=== PATIENT | male | born 1965 ===

== ENCOUNTER 2017-11-10 04:57 | Emergency (ER) | payer MEDICAID ==
--- NOTE | 2017-11-10 07:11 | Emergency Department Report ---
ED Fall HPI - General Chief Complaint: Fall Stated Complaint: FALL/SUICIDAL Time Seen by Provider: 11/10/17 06:51 Source: patient Mode of arrival: Ambulatory Limitations: Altered Mental Status - History of Present Illness Initial Comments: Patient fell out of his wheelchair this morning after drinking alcohol. Patient is unable to give history because he is drunk. Complaint: fall -: Sudden Fall From: wheelchair When Fall Occurred: just prior to arrival Fall Witnessed: no Loss of Consciousness: unsure Prolonged Down Time?: no Symptoms Prior to Fall: none Location: head Severity: mild Severity scale (0 -10): 0 Context: alcohol use Associated Symptoms: denies - Related Data Allergies Allergy/AdvReac Type Severity Reaction Status Date / Time No Known Allergies Allergy Unverified 11/10/17 06:43 ED Review of Systems ROS: Stated complaint: FALL/SUICIDAL Other details as noted in HPI Comment: All other systems reviewed and negative Constitutional: denies: chills, fever Eyes: denies: eye pain ENT: denies: ear pain Respiratory: denies: cough, shortness of breath Cardiovascular: denies: chest pain, palpitations Endocrine: no symptoms reported Gastrointestinal: denies: abdominal pain, nausea, vomiting, diarrhea Genitourinary: denies: urgency, dysuria Musculoskeletal: denies: back pain, joint swelling Skin: denies: rash, lesions, change in color Neurological: denies: headache, weakness, numbness Psychiatric: denies: anxiety, depression Hematological/Lymphatic: denies: easy bleeding, easy bruising ED Past Medical Hx - Past Medical History Hx Hypertension: Yes Hx Arthritis: Yes - Surgical History Past Surgical History?: No - Social History Smoking Status: Current Every Day Smoker Substance Use Type: Alcohol, Marijuana ED Physical Exam - General Limitations: No Limitations General appearance: alert, in no apparent distress, lethargic - Head Head exam: Present: atraumatic, normocephalic, normal inspection - Eye Eye exam: Present: normal appearance, PERRL, EOMI Pupils: Present: normal accommodation - ENT ENT exam: Present: normal exam, normal orophraynx, mucous membranes moist - Neck Neck exam: Present: normal inspection, full ROM. Absent: tenderness - Respiratory Respiratory exam: Present: normal lung sounds bilaterally. Absent: respiratory distress, wheezes, rales, rhonchi, stridor - Cardiovascular Cardiovascular Exam: Present: regular rate, normal rhythm, normal heart sounds - GI/Abdominal GI/Abdominal exam: Present: soft, normal bowel sounds. Absent: distended, tenderness, guarding, rebound, rigid - Extremities Exam Extremities exam: Present: normal inspection, full ROM, normal capillary refill - Back Exam Back exam: Present: normal inspection, full ROM. Absent: tenderness, CVA tenderness (R), CVA tenderness (L) - Neurological Exam Neurological exam: Present: alert - Psychiatric Psychiatric exam: Present: flat affect - Skin Skin exam: Present: warm, rash. Absent: dry, intact, normal color ED Course Vital Signs 11/10/17 06:46 Temperature 97.4 F L Pulse Rate 68 Respiratory 18 Rate Blood Pressure 117/73 O2 Sat by Pulse 99 Oximetry - Reevaluation(s) Reevaluation #1: 11/10/17 11:59 Patient is fully awake and he answered all my questions appropriately. He was fed lunch and he finished his lunch without any problem. He wants to be discharged so that he can get to the pain clinic before 2pm today. ED Medical Decision Making - Lab Data Result diagrams: 11/10/17 07:15 11/10/17 07:15 - Radiology Data Radiology results: report reviewed, image reviewed - Medical Decision Making Alcohol intoxication. S/P Fall. Critical care attestation.: If time is entered above; I have spent that time in minutes in the direct care of this critically ill patient, excluding procedure time. ED Disposition Clinical Impression: Alcohol abuse, Marijuana abuse Fall Qualifiers: Encounter type: initial encounter Qualified Code(s): W19.XXXA - Unspecified fall, initial encounter Alcohol intoxication Qualifiers: Complication of substance-induced condition: uncomplicated Qualified Code(s): F10.920 - Alcohol use, unspecified with intoxication, uncomplicated Disposition: DC-01 TO HOME OR SELFCARE Is pt being admited?: No Does the pt Need Aspirin: No Condition: Stable Instructions: Abuse of Alcohol (ED) Additional Instructions: Please follow up with your regular doctor tomorrow morning. Return to the ED if your condition worsens. Referrals: PRIMARY CARE, [Primary Care Provider] - 3-5 Days Time of Disposition: 12:03
[2017-11-10 07:28] LABS: Basophils % (Auto) 0.6 % (0.0-1.8); Eosinophils # (Auto) 0.3 K/mm3 (0.0-0.4); Eosinophils % (Auto) 5.4 % (0.0-4.3); Hematocrit 43.4 % (35.5-45.6); Hemoglobin 15.3 gm/dl (11.8-15.2); Lymphocytes # (Auto) 2.6 K/mm3 (1.2-5.4); Lymphocytes % (Auto) 53.2 % (13.4-35.0); Mean Corpuscular HGB Conc 35 % (32-34); Mean Corpuscular Hemoglobin 32 pg (28-32); Mean Corpuscular Volume 91 fl (84-94); Monocytes # (Auto) 0.3 K/mm3 (0.0-0.8); Monocytes % (Auto) 5.7 % (0.0-7.3); Platelet Count 262 K/mm3 (140-440); Red Blood Count 4.79 M/mm3 (3.65-5.03)
--- NOTE | 2017-11-10 07:29 | XRay Report ---
FINAL REPORT PROCEDURE: XR CHEST 1V AP TECHNIQUE: Chest radiograph anteroposterior view. CPT 86479 HISTORY: Fall COMPARISON: No prior studies are available for comparison. FINDINGS: Heart: Normal. Mediastinum/Vessels: Normal. Lungs/Pleural space: The lungs are expanded. There are no infiltrates, effusions or pneumothoraces. Bony thorax: No acute osseous abnormality. Life support devices: None. IMPRESSION: No acute cardiopulmonary abnormality.
[2017-11-10 07:38] LABS: INR 1.03 (0.87-1.13)
[2017-11-10 07:39] LABS: Partial Thromboplastin Time 28.6 Sec. (24.2-36.6)
[2017-11-10 07:44] LABS: Alanine Aminotransferase 17 units/L (7-56); Albumin 4.3 g/dL (3.9-5); BUN/Creatinine Ratio 9; Blood Urea Nitrogen 7 mg/dL (9-20); Calcium 9.1 mg/dL (8.4-10.2); Hemolysis Index 12
--- NOTE | 2017-11-10 07:53 | Cat Scan Report ---
CT HEAD WITHOUT CONTRAST: HISTORY: Status post fall with head injury. TECHNIQUE: Sequential CT images without contrast. FINDINGS: Images obtained show bilateral prominence of the sulci and ventricles. There are no abnormal intra- or extra-axial blood or fluid collections. There are no focal masses or evidence of mass effect. The ibarra white matter differentiation appears within normal limits. Regions of periventricular decreased attenuation are consistent with microangiopathic ischemic disease. The posterior fossa structures including the fourth ventricle, cerebellum, and brainstem appear normal. Who Chronic left medial orbital wall fracture and chronic right inferior orbital fractures are partially imaged. No acute fracture. IMPRESSION: Evidence of atrophy and microangiopathic ischemic disease. No acute intracranial process noted.
--- NOTE | 2017-11-10 07:57 | Cat Scan Report ---
CT SCAN OF THE CERVICAL SPINE: HISTORY: Fall, injury. TECHNIQUE: Contiguous 1.25 mm axial images of the cervical spine were obtained. Sagittal and coronal reformatted images. FINDINGS: The posterior elements of C7 and T1 are partially cut off the [id number]. There is normal alignment of the cervical spine. The body, pedicles and posterior ligaments appear normal. No evidence of fracture or subluxation is seen. The spinal canal appears normal. The prevertebral soft tissues appear normal. IMPRESSION: Unremarkable CT of the cervical spine. No acute process is noted. The posterior spinous processes of C7 and T1 are not included in this study.
[2017-11-10] MEDS ORDERED: VITAMIN B-1 100 MG, FOLVITE 1 MG, INFUVITE 10 ML in NACL 0.9% 1000 ML 1,000 ML IV ONE (10:00)
[2017-11-10 10:15] LABS: Bilirubin,Urine NEG (Negative); Blood,Urine NEG (Negative); Color,Urine Straw (Yellow); Protein,Urine <15 mg/dL mg/dL (Negative); RBC,Urine < 1.0 /HPF (0.0-6.0); Urobilinogen,Urine < 2.0 mg/dL (<2.0)
[2017-11-10 10:39] LABS: Amphetamine Screen,Urine PRESUMPTIVE NEGATIVE; Benzodiazepines Screen,Urine PRESUMPTIVE NEGATIVE; Cocaine Screen,Urine PRESUMPTIVE NEGATIVE; Methadone Screen,Urine PRESUMPTIVE NEGATIVE; Opiate Screen,Urine PRESUMPTIVE NEGATIVE
[2017-11-10 11:27] LABS: Cannabinoid Screen,Urine PRESUMPTIVE POSITIVE
[2017-11-10 14:15] VITALS: BP 118/71
== END 2017-11-10 17:00 | disposition home or self-care (01) ==
LOC: ED 04:57 → EEVIPCON 04:57 → ED 17:00
DX: S09.90XA Unspecified injury of head, initial encounter (principal); F10.920 Alcohol use, unspecified with intoxication, uncomplicated; F12.10 Cannabis abuse, uncomplicated; I10 Essential (primary) hypertension; M19.90 Unspecified osteoarthritis, unspecified site; F17.200 Nicotine dependence, unspecified, uncomplicated; W05.0XXA Fall from non-moving wheelchair, initial encounter; Y93.89 Activity, other specified; Y92.89 Other specified places as the place of occurrence of the external cause; Y99.8 Other external cause status
CPT/HCPCS: 36415; 70450; 71045; 72125; 80053; 80307; 81001; 82962; 85025; 85610; 85730; 96365; 96366; 99284; G0480; J3411; J7030; 80320